=== PATIENT | male | born 1965 | race Caucasian/White ===

== ENCOUNTER 2018-04-23 23:38 | Emergency (ER) | payer SELFPAY ==
[2018-04-24 00:23] VITALS: BP 163/100; PULSE 75; BMI 28.3
--- NOTE | 2018-04-24 01:08 | PDOC ---
History of Present Illness - General Chief Complaint: Blood Pressure Problem Stated Complaint: BLOOD PRESSURE PROBLEM Time Seen by Provider: 04/24/18 00:48 History Source: Patient Exam Limitations: No Limitations - History of Present Illness Initial Comments: 04/24/18 01:08 53y M no significant past medical history presenting with complaint of hypertension. Patient states that he's been feeling a little bit flushed was at the pharmacy to sided check his blood pressure and was at 180/100. The patient denies any as other associated symptoms including lightheadedness, nausea, vomiting, numbness, weakness, tingling, vision changes, chest pain, shortness of breath, diaphoresis, abdominal pain, back pain, lower extremity edema, orthopnea. The patient denies any dysuria, hematuria, diarrhea, melena, BPR The patient has no history of hypertension in the past however he did check his blood pressure yesterday at the pharmacy and was also elevated. he denies any EtOH use, stimulant use, smoking. Past History - Past Medical History Allergies/Adverse Reactions: Allergies Allergy/AdvReac Type Severity Reaction Status Date / Time No Known Allergies Allergy Verified 04/24/18 00:17 - Suicide/Smoking/Psychosocial Hx Smoking History: Never smoked Have you smoked in the past 12 months: No Information on smoking cessation initiated: No Hx Alcohol Use: No Drug/Substance Use Hx: No Review of Systems - Review of Systems Able to Perform ROS?: Yes Comments:: 04/24/18 01:16 Constitutional - no reported Fever, Chills, HEENT: no reported vision changes, sore throat Respiratory: no reported cough, sob, hemoptysis Cardiac: no reported chest pain, palpitations, light headedness, leg swelling Abd/GI: no reported abd pain, nausea, vomiting, blood per rectum, melena, diarrhea : no reported dysuria, frequency, discharge Musculskelatal - no reported back pain, joint swelling skin - no reported bruising, erythema, rash neurological: no reported headache, numbness, focal weakness, tingling, ataxia, hematologic: no reported easy bruising, easy bleeding *Physical Exam - Vital Signs Last Vital Signs Temp Pulse Resp BP Pulse Ox 75 16 163/100 98 04/23/18 23:45 04/23/18 23:45 04/23/18 23:45 04/23/18 23:45 - Physical Exam Comments: 04/24/18 01:16 GENERAL: The patient is awake, alert, and fully oriented, Nontoxic - in no acute distress. HEAD: Normocephalic, atraumatic. EYES: extraocular movements intact, sclera anicteric, conjunctiva clear. ENT: Normal voice, Moist mucous membranes. NECK: Normal range of motion, supple LUNGS: Breath sounds equal, clear to auscultation bilaterally. No wheezes, no rhonchi, no rales. HEART: Regular rate and rhythm, normal S1 and S2 without murmur, rub or gallop. ABDOMEN: Soft, nontender, normoactive bowel sounds. No guarding, no rebound. . No CVA tenderness EXTREMITIES: Normal range of motion, no edema. No clubbing or cyanosis. No cords, erythema, or tenderness. NEUROLOGICAL: No facial assymetry, Normal speech, PSYCH: Normal mood, normal affect. SKIN: Warm, Dry, normal turgor, Moderate Sedation - Procedure Monitoring Vital Signs: Procedure Monitoring Vital Signs Temperature Pulse Rate 75 04/23/18 23:45 Respiratory Rate 16 04/23/18 23:45 Blood Pressure 163/100 04/23/18 23:45 O2 Sat by Pulse Oximetry (%) 98 04/23/18 23:45 Medical Decision Making - Medical Decision Making 04/24/18 01:16 Asymptomatic hypertension, will discharge patient to follow-up with PMD for further monitoring his blood pressure. the patient does note that he is under stress since he has not had any work for 3 months and that has been worrisome to him Defer further workup as patient is otherwise asymptomatic. Defer medical management until patient follows with PMD as his blood pressure is a bit improved at 150/100. Return precautions were discussed I discussed the physical exam findings, ancillary test results and final diagnoses with the patient. I answered all of the patient's questions. The patient was satisfied with the care received and felt comfortable with the discharge plan and treatment plan. The patient will call their primary care physician within 24 hours to arrange follow-up and will return to the Emergency Department with any new, persistent or worsening symptoms. *DC/Admit/Observation/Transfer Diagnosis at time of Disposition: Hypertension Qualifiers: Hypertension type: unspecified Qualified Code(s): I10 - Essential (primary) hypertension - Discharge Dispostion Disposition: HOME Condition at time of disposition: Stable Decision to Admit order: No - Referrals Referrals: [facility] [place] [facility] [Provider Group] - Patient Instructions Printed Discharge Instructions: DI for High Blood Pressure Additional Instructions: Regrese al departamento de emergencias inmediatamente con CUALQUIER sntoma nuevo, persistente o que empeore, melvin dolor en el pecho, mareos, nuseas, vmitos, sudoracin, falta de aire o cualquier otra inquietud. DEBE llamar y hacer un seguimiento con carlson mdico dentro de 5 rubin para alesia evaluacin adicional de mami sntomas. Los resultados fueron discutidos con usted. Asegrese de que carlson mdico revise los resultados de carlson evaluacin de emergencia. - Return to the emergency department immediately with ANY new, persistent or worsening symptoms including chest pain, lightheadedness, nausea, vomiting, sweating, shortness of breath or any other concerns. You MUST call and follow up with your doctor with in 5 days for further evaluation of your symptoms. Results were discussed with you. Please make sure your doctor reviews the results of your emergency evaluation. Print Language: WOLOF - Post Discharge Activity
== END 2018-04-24 01:49 | disposition home or self-care (01) ==
LOC: JER 23:38
DX: I10 Essential (primary) hypertension (principal)
CPT/HCPCS: 99281-25